=== PATIENT | female | born 1970 | race Caucasian/White ===

== ENCOUNTER → 2016-12-22 | Outpatient (CLI) | payer OTHER | LOC: BMCIMAGING 13:19 | PROVIDERS: ATTEND Internal Medicine | DX: Z12.31 Encounter for screening mammogram for malignant neoplasm of breast (principal); Z80.3 Family history of malignant neoplasm of breast | CPT/HCPCS: G0202 ==

== ENCOUNTER → 2017-04-14 | Outpatient (CLI) | payer OTHER | LOC: GIMAGING 10:05 | PROVIDERS: ATTEND Nurse Practitioner | DX: M25.561 Pain in right knee (principal) | CPT/HCPCS: 73562-PO ==

== ENCOUNTER → 2017-12-28 | Outpatient (CLI) | payer OTHER | LOC: BMCIMAGING 12:40 | DX: Z12.31 Encounter for screening mammogram for malignant neoplasm of breast (principal); Z80.3 Family history of malignant neoplasm of breast ==